=== PATIENT | male | born 1975 | race Caucasian/White ===

== ENCOUNTER 2017-06-03 19:57 | Emergency (ER) | payer SELFPAY ==
[~2017-06-03] VITALS: Ht 167.6 cm; Wt 79.5 kg
[2017-06-04 00:18] VITALS: BP 122/76
== END 2017-06-04 00:18 | disposition home or self-care (01) ==
LOC: EMS 20:00
DX: B86 Scabies (principal); I10 Essential (primary) hypertension; G40.909 Epilepsy, unspecified, not intractable, without status epilepticus; Z88.0 Allergy status to penicillin
CPT/HCPCS: 99281